=== PATIENT | male | born 2000 | race African-American/Black ===

== ENCOUNTER 2024-11-09 23:34 | Inpatient (IN) | payer SELFPAY ==
[~2024-11-09] VITALS: Ht 190.5 cm; Wt 86.2 kg
[2024-11-10] MEDS ORDERED: ZOLPIDEM TARTRATE 10 MG TABLET PO PRN (04:15)
[2024-11-10] MEDS ORDERED: LOPERAMIDE HCL 2 MG CAPSULE PO PRN (07:15)
[2024-11-10] MEDS ORDERED: ALBUTEROL SULFATE HFA 90 MCG/PUFF 8 GM INHALER IH PRN (07:15)
[2024-11-10] MEDS ORDERED: BENZOCAINE/MENTHOL [CEPACOL] LOZENGE PO PRN (07:15)
[2024-11-10] MEDS ORDERED: DOCUSATE SODIUM 100 MG CAPSULE PO PRN (07:15)
[2024-11-10] MEDS ORDERED: MAGNESIUM HYDROXIDE SUSPENSION 30 ML UDCUP PO PRN (07:15)
[2024-11-10] MEDS ORDERED: PETROLATUM,WHITE 28 GM JELLY TP PRN (07:15)
[2024-11-10] MEDS ORDERED: ACETAMINOPHEN 325 MG TABLET PO PRN (07:15)
[2024-11-10] MEDS ORDERED: ONDANSETRON 4 MG TABLET PO PRN (07:15)
[2024-11-10] MEDS ORDERED: IBUPROFEN 600 MG TABLET PO PRN (07:15)
[2024-11-10] MEDS ORDERED: OMEPRAZOLE 20 MG CAPSULE PO PRN (07:15)
[2024-11-10] MEDS ORDERED: MAG HYDROX/ALUMINUM HYD/SIMETH ES 30 ML SUSPENSION UDCUP PO PRN (07:15)
[2024-11-10] MEDS ORDERED: BACITRACIN 28 GM OINTMENT TP PRN (07:15)
[2024-11-10 08:30] VITALS: BP 106/90; PULSE 72; RESP 18; TEMP 97.7; O2SAT 100
[2024-11-10] MEDS: LURASIDONE HCL 20 MG TABLET PO SCH (17:00)
[2024-11-10 20:25] VITALS: BP 136/84; PULSE 73; RESP 16; TEMP 97.4; O2SAT 100
[2024-11-12] MEDS ORDERED: RISP-32 PO (12:41)
== END 2024-11-12 19:23 | disposition left against medical advice (07) | DRG 885 ==
LOC: B3A 11-10 04:11
PROVIDERS: ADMIT Psychiatry & Neurology Psychiatry; ATTEND Psychiatry & Neurology Psychiatry
PROC: GZ56ZZZ Individual Psychotherapy, Supportive (ICD-10-PCS; principal; 2024-11-10)
DX: F20.9 Schizophrenia, unspecified (principal); F41.9 Anxiety disorder, unspecified; G47.00 Insomnia, unspecified; K59.00 Constipation, unspecified; Z53.29 Procedure and treatment not carried out because of patient's decision for other reasons
CPT/HCPCS: Z7610